=== PATIENT | female | born 1980 | race Two or more races ===

== ENCOUNTER 2024-12-03 08:48 | Day surgery (SDC) | payer OTHER ==
[2024-12-02 10:13] LABS: INR 1.14 (0.9-1.15); Partial Thromboplastin Time 30.3 SEC (24.5-34.5); Prothrombin Time 11.9 sec (9.3-11.8); Urine Bacteria FEW /hpf (None Seen); Urine Blood Negative /uL (Negative); Urine Budding Yeast OCCASIONAL /hpf (None Seen); Urine Clarity Clear (Clear); Urine Color Yellow (Yellow); Urine Mucus FEW (None Seen); Urine Protein, UAD Negative (Negative); Urine Specific Gravity 1.018 (1.001-1.035); Urine Squamous Epithelial Cell FEW /hpf (<5); Urine Urobilinogen Normal (Negative); Urine WBC < 1 /HPF (0-5); Urine pH 6.5 (5.0-9.0)
[2024-12-02 10:16] LABS: Basophils # (auto) 0 10 ^3/uL (0-0.2); Basophils % (auto) 0.6 % (0.0-2.0); Eosinophils # (auto) 0.7 10 ^3/uL (0-0.8); Eosinophils % (auto) 9.4 % (0.0-7.0); Hematocrit 44.5 % (36.0-46.0); Hemoglobin 15.3 g/dL (12.2-16.2); Lymphocytes # (auto) 2.3 10 ^3/uL (0.4-5.4); Lymphocytes % (auto) 30.6 % (10.0-50.0); Mean Corpuscular Hemoglobin 31.2 pg (28.0-32.0); Mean Corpuscular Hgb Conc. 34.4 g/dL (32.0-36.0); Mean Corpuscular Volume 90.9 fL (80.0-100.0); Monocytes # (auto) 0.3 10 ^3/uL (0-1.3); Monocytes % (auto) 4.5 % (0.0-12.0); Neutrophils # (auto) 4.1 10 ^3/uL (1.6-8.6); Neutrophils % (auto) 54.9 % (37.0-80.0); Nucleated Red Blood Cells % 0.2 %; Platelet Count (auto) 174 10^3/uL (140-450); Red Blood Cells 4.89 10^6/uL (4.0-5.20); Red Cell Distribution Width 13.2 % (11.8-14.3); White Blood Cell 7.4 10^3/uL (4.4-10.8)
[2024-12-02 10:31] LABS: Alanine Aminotransferase 76 U/L (7-40); Albumin 4.3 g/dL (3.2-4.8); Alkaline Phosphatase 74 U/L (46-116); Anion Gap 8 (5-15); Aspartate Aminotransferase 99 U/L (<34); BUN/Creatinine Ratio 8.2 (10.0-20.0); Blood Urea Nitrogen 6 mg/dL (9-23); Calcium 10.1 mg/dL (8.7-10.4); Carbon Dioxide 27 mmol/L (20-31); Chloride 103 mmol/L (98-107); Glucose 190 mg/dL (74-106); Potassium 4.8 mmol/L (3.5-5.1); Sodium 138 mmol/L (136-145); Total Protein 7.9 g/dL (5.7-8.2)
[~2024-12-03] VITALS: Ht 170.2 cm; Wt 124.7 kg
[2024-12-03] MEDS ORDERED: KETOROLAC TROMETH 30 MG/ML 1ML VIAL IV ONE (13:00)
[2024-12-03] MEDS ORDERED: HYDROmorphone HCL 2 MG/ML VL/or syr IV PRN (13:00)
[2024-12-03] MEDS ORDERED: MIDAZOLAM HCL 2MG/2ML 2ml VIAL (1mg/ml) ONE (13:01)
[2024-12-03] MEDS ORDERED: fentaNYL CITRATE 100 MCG/2 ML VL ONE (13:01)
[2024-12-03] MEDS ORDERED: PROPOFOL 10 MG/ML 20 ML IV ONE (13:02)
[2024-12-03] MEDS: ceFAZolin 2 GM/D5W50ml 50 ML IV ONE (13:15)
[2024-12-03] MEDS ORDERED: DexAMETHasone SOD PHOS 10MG/1ML VIAL INJ ONE (13:27)
[2024-12-03] MEDS ORDERED: ONDANSETRON HCL 4 MG/2 ML VIAL ONE (13:27)
[2024-12-03] MEDS: LIDOCAINE W/ EPINEPHRINE 1% 20ML VIAL ONE (13:31)
[2024-12-03] MEDS: BUPIVACAINE 0.5% P/F INJ 10 ML VIAL ONE (13:31)
[2024-12-03] MEDS ORDERED: HYDROmorphone HCL 2 MG/ML VL/or syr ONE (13:44)
[2024-12-03] MEDS ORDERED: SUGAMMADEX 200mg/2ml Vial (100MG/ML) IV ONE (13:45)
[2024-12-03] MEDS ORDERED: ePHEDrine SULFATE 50 MG/ML AMP ONE (13:50)
[2024-12-03 14:17] VITALS: TEMP 97; O2SAT 100
--- NOTE | 2024-12-03 14:23 | DVHOP ---
DATE OF SURGERY: 12/03/2024 PREOPERATIVE DIAGNOSIS: Umbilical hernia. POSTOPERATIVE DIAGNOSIS: Umbilical hernia. SURGEON: Fantasma Venegas MD. HAND COUNTER: Nando Cornejo NP. ANESTHESIA: General endotracheal. ANESTHESIOLOGIST: Kirk Burgess. PROCEDURE: Repair of umbilical hernia. DESCRIPTION OF PROCEDURE: Under general endotracheal anesthesia, the patient's skin prepped and draped. A longitudinal vertical incision was made in the patient's obese abdomen. The adipose tissue was divided with electrocautery. The fascia was encountered. There was a 1.5 cm herniation containing fat. This was reduced and the hernia defect was enlarged so as to be able to palpate superiorly where the patient's pain resided. The patient's pain was in the right upper area superior and to the right of the umbilicus; however, I did not detect any hernia in that region by palpation. The defect of the umbilical hernia was then repaired utilizing nonabsorbable #1 sutures and the subcutaneous tissues and skin were approximated using Monocryl sutures, Dermabond glue and Steri-Strips. The patient remained stable throughout the procedure and left the operating room following an accurate needle and sponge count. Her family was thoroughly informed at [phone]. MD YAMILA Kumar/BHARGAV TID: [id number] RECEIPT: [id number]
[2024-12-03] MEDS: ONDANSETRON HCL 4 MG/2 ML VIAL IV ONE (15:00)
[2024-12-03 15:10] VITALS: BP 139/79; PULSE 102; RESP 15; O2SAT 97
[2024-12-03] MEDS: METOCLOPRAMIDE HCL 5MG/ml INJ 2ml VIAL IV ONE (15:10)
== END 2024-12-03 15:20 | disposition home or self-care (01) ==
LOC: SUR 08:48
PROVIDERS: ATTEND Surgery
DX: K42.9 Umbilical hernia without obstruction or gangrene (principal); E66.9 Obesity, unspecified; I10 Essential (primary) hypertension; E11.9 Type 2 diabetes mellitus without complications; Z98.890 Other specified postprocedural states; Z98.891 History of uterine scar from previous surgery; Z79.899 Other long term (current) drug therapy; Z98.51 Tubal ligation status
CPT/HCPCS: 36415; 49591; 80053; 81001; 82962; 84702; 85025; 85610; 85730; 86850; 86900; 86901; 88302; J0690; J1100; J1171; J2250; J2405; J2704; J2765; J3010; J3490